=== PATIENT | male | born 1940 | race Caucasian/White ===

== ENCOUNTER 2018-07-01 10:54 | Day surgery (SDC) | payer MEDICARE ==
[~2018-07-01 10:54] MED LIST: Buffered Lidocaine 0.9% SYRIN* 5 ML/SYR SYRINGE INTRADERM ONE
[2018-07-01] MEDS ORDERED: ceFAZolin 2 GM PREMIX in ORs 2 GM/50 ML BAG IVPB ONE (12:10)
[2018-07-01] MEDS ORDERED: Naloxone* 0.4 MG/ML 1 ML VIAL IV PRN (13:56)
[2018-07-01] MEDS ORDERED: Bupivacaine 0.25% W/EPI* 10 ML SDV ONE (14:01)
[2018-07-01] MEDS ORDERED: Midazolam* 1 MG/ML 2 ML VIAL (2 MG) ONE ×2 (14:10→14:21)
[2018-07-01] MEDS ORDERED: fentaNYL* 50 MCG/ML 2 ML VIAL (100 MCG VIAL) ONE (14:10)
[2018-07-01] MEDS ORDERED: Lidocain 1% EPI 1:100,000 * 30 ML MDV ONE (14:24)
[2018-07-01] MEDS ORDERED: Mineral Oil Sterile, TOPICAL* 25 ML BTL ONE (14:43)
[2018-07-01 16:32] VITALS: BP 102/68
== END 2018-07-01 16:45 | disposition home or self-care (01) ==
LOC: OR 10:54
PROVIDERS: ATTEND Plastic Surgery
DX: C44.311 Basal cell carcinoma of skin of nose (principal); I25.10 Atherosclerotic heart disease of native coronary artery without angina pectoris; Z87.891 Personal history of nicotine dependence; Z85.46 Personal history of malignant neoplasm of prostate; Z95.818 Presence of other cardiac implants and grafts
CPT/HCPCS: 88305; 88331; 88332; A9270-GY; J0690; J2250; J3010